=== PATIENT | female | born 1970 | race Caucasian/White ===

== ENCOUNTER → 2017-09-01 14:29 | Outpatient (CLI) | payer SELFPAY ==
--- NOTE | 2017-09-01 14:35 | BI_ITS ---
MAMMOGRAPHY - BILATERAL SCREENING REASON FOR EXAM: Female, 47 years old. Routine annual screening examination. PERTINENT HISTORY: Grandmother with breast cancer. Aunt with breast cancer. TECHNIQUE: Digital bilateral breast rob (3D mammographic acquisition) in the CC and MLO projections. 2-D mediolateral oblique (MLO) and craniocaudad (CC) views of both breasts were obtained. CAD: Full Field Digital Mammography with Computer Added Detection was performed. COMPARISON: Comparison is made with prior study dated March 30, 2016 and January 16, 2012. FINDINGS: Breast Composition: The breasts are heterogeneously dense, which may obscure small masses. There are no dominant masses or suspicious calcifications. Stable small bilateral benign-appearing axillary lymph nodes. No other significant abnormalities are identified. There has been no significant change since the prior study. BI/SCREENING MAMM (CAD), BILAT IMPRESSION: Stable bilateral screening mammogram. Yearly follow-up mammogram recommended. (A) ASSESSMENT CATEGORY: BIRADS Category 2: Benign. A letter regarding these results will be sent to the patient by the facility within 30 days. Approximately 10% of breast cancers are not detected by mammography. A normal mammogram should not delay biopsy of a clinically suspicious abnormality. [id number] Electronically Signed: Shubham Madrigal MD at 8:44 EDT Tel [phone], Service support ,
== END ==
PROVIDERS: Family Provider Nurse Practitioner Family; PCP Nurse Practitioner Family; Visit Provider Obstetrics & Gynecology
DX: Z12.31 Encounter for screening mammogram for malignant neoplasm of breast (principal)
CPT/HCPCS: 77063; 77067

== ENCOUNTER → 2018-03-14 16:34 | Outpatient (CLI) | payer SELFPAY ==
--- NOTE | 2018-03-14 16:40 | RAD_ITS ---
STUDY: X-RAY CHEST REASON FOR EXAM: Female, 48 years old. Cough times several weeks TECHNIQUE: PA and lateral views of the chest. COMPARISON: Prior study of 02/07/2017 FINDINGS: There is increased streaky pulmonic density of the right lung base. Right basilar peribronchial cuffing is noted. There is no demonstrated pleural abnormality. Normal size heart. Normal mediastinum and jh. Normal visualized pulmonary arteries. Normal visualized aortic arch and descending thoracic aorta. There is a minimal lower thoracic dextroscoliosis. Normal visualized ribs, clavicles, and shoulders. There is no demonstrated abnormality of the visualized soft tissue structures of the upper abdomen. RAD/Chest PA and Lateral IMPRESSION: There is increased streaky pulmonic density with peribronchial cuffing of the right lung base. Findings may represents pneumonitis. There is no evidence of alex consolidation. Minimal lower thoracic dextroscoliosis. Electronically Signed: Michael Lin MD at 23:31 EDT , Service support ,
== END ==
PROVIDERS: Family Provider Nurse Practitioner Family; PCP Nurse Practitioner Family; Referring Provider Nurse Practitioner Family; Visit Provider Nurse Practitioner Family
DX: J18.9 Pneumonia, unspecified organism (principal)
CPT/HCPCS: 71046

== ENCOUNTER → 2020-11-16 12:15 | Outpatient (CLI) | payer SELFPAY ==
--- NOTE | 2020-11-16 12:21 | BI_ITS ---
MAMMOGRAPHY - BILATERAL SCREENING REASON FOR EXAM: Female, 50 years old. Routine annual screening examination. PERTINENT HISTORY: Grandmother with breast cancer. Aunt with breast cancer. TECHNIQUE: Digital bilateral breast kenna (3D mammographic acquisition) in the CC and MLO projections. 2-D mediolateral oblique (MLO) and craniocaudad (CC) views of both breasts were obtained. CAD: Full Field Digital Mammography with Computer Added Detection was performed. COMPARISON: Comparison is made with prior examination dated 09/01/2017 and 03/30/2016. FINDINGS: Breast Composition: The breasts are heterogeneously dense, which may obscure small masses. There are no dominant masses or suspicious calcifications. Stable benign appearing bilateral axillary lymph nodes. No other significant abnormalities are identified. There has been no significant change since the prior study. BI/SCRN MAMM (CAD)W/KENNA BILAT IMPRESSION: Stable bilateral screening mammogram. Yearly follow-up mammogram recommended. (A) ASSESSMENT CATEGORY: BIRADS Category 2: Benign. A letter regarding these results will be sent to the patient by the facility within 30 days. Approximately 10% of breast cancers are not detected by mammography. A normal mammogram should not delay biopsy of a clinically suspicious abnormality. [id number] Electronically Signed: Shubham Madrigal MD at 13:20 EDT , Service support ,
== END ==
PROVIDERS: PCP Nurse Practitioner Family; Referring Provider Obstetrics & Gynecology; Visit Provider Obstetrics & Gynecology
DX: Z12.31 Encounter for screening mammogram for malignant neoplasm of breast (principal)
CPT/HCPCS: 77063; 77067

== ENCOUNTER 2022-08-17 15:32 | Emergency (ER) | payer OTHER, SELFPAY ==
[2022-08-17 15:32] VITALS: BP 152/82; PULSE 111; RESP 18; TEMP 36.2; O2SAT 97; BMI 37.8
--- NOTE | 2022-08-17 15:46 | EKG12_ITS ---
Test Reason : CP Blood Pressure : / mmHG Vent. Rate : 092 BPM Atrial Rate : 092 BPM P-R Int : 120 ms QRS Dur : 090 ms QT Int : 374 ms P-R-T Axes : 022 018 015 degrees QTc Int : 462 ms Normal sinus rhythm Normal ECG Confirmed by CHRISSY BUSH, DEN ([id number]), electronic news gathering editor KENNEDY DIXON ([id number]) on 08/22/2022 10:39:35 AM Referred By: NICHOL Confirmed By:JO LOWE MD
--- NOTE | 2022-08-17 15:47 | ED.VIS.CHEST ---
HPI History of Present Illness Chief Complaint: Chest Pain Detail of Chief Complaint: Neck and chest pain Informant: patient and spouse/S.O. Onset/Context/Timing Onset: Yesterday Activity at onset: sudden Timing: Continuous Quality: Positive for Stabbing Location: - (From the larynx to the xiphoid process and complains of bilateral jaw pain) Current Severity: Mild Maximum Severity: Moderate Worsened By: Exertion, Movement of Torso and Breathing Relieved By: Nothing Associated Symptoms: Positive for Dyspnea; Negative for Nausea, Vomiting, Diaphoresis, Cough, Fever, Lightheadedness, Acid Reflux or Palpitations Narrative Narrative: Patient is a 52-year-old woman who was sent in by her primary care doctor because of anterior neck pain that starts from the larynx to the xiphoid process describes a sharp discomfort. This started last evening. She has noted shortness of breath with going upstairs today. It does make the discomfort slightly worse. There is also a positional component and musculoskeletal component. Question of the pain being worse with breathing. She and her returned from [place] 3 weeks ago. They were in [place] for 3 weeks. She states they drove. She has no history of VTE. She denies leg pain, swelling or discoloration. She states she is adopted. She states her father had coronary disease. She believes he had his first event at the age of 67. She does have a remote history of reflux. She denies sour eructation. She denies burning sensation in her throat at night. She denies black or maroon stool. Denies change in color, consistency or caliber of her stool. She did make the comment that her voice is slightly different since this morning. She has not had difficulty swallowing liquids or solids. She denies pain in her upper or lower extremities. She denies paresthesia, anesthesia or motor weakness. Patient is postmenopausal. She is on no medication. Prior Similar Symptoms: No Recent Illness/Hospitalization: No CVD Risk Factors: Negative for Hypertension, Diabetes, Hypercholesterolemia, Family History 1' </=55 or Smoking PE Risk Factors: Positive for Recent Travel/Surgery; Negative for Recent Immobilization, Prior DVT or PE, Cancer or OCP + Smoking + >/=35 TAD Risk Factors: Negative for Marfan's Syndrome, Hypertension or Family History [facility] Medical History (Updated 08/17/22 @ 18:[address] Manoj Hood MD) Family history of GERD Medical History no medical history no medical history Home Medications estradiol 1 mg tablet 1 mg PO DAILY 08/24/16 [History Last Taken 10/21/16] Allergy/AdvReac Type Severity Reaction Status Date / Time latex Allergy Itching Verified 08/17/22 15:34 CORNSTARCH Allergy Itching Uncoded 08/17/22 15:34 Surgical History (Updated 08/17/22 @ 16:46 by Suzan Concepcion) History of appendectomy History of cholecystectomy History of hysterectomy Social History (Updated 08/17/22 @ 15:[address] Manoj Hood MD) household members: spouse Smoking Status: Former smoker substance use type: does not use ROS ROS ED Constitutional Constitutional ED: Reports as per HPI; Denies anorexia Eyes Eyes: Reports none ENT ENT ED: Reports as per HPI Cardiovascular Cardiovascular: Reports chest pain and chest pain at rest; Denies abdominal bloating, bluish discoloration of hand/feet, claudication, clubbing, cyanosis, diaphoresis or vomiting Gastrointestinal Gastrointestinal: Denies abdominal pain, belching, bloating, change in bowel habits, change in stool character or constipation Genitourinary Genitourinary ED: Reports none Musculoskeletal Musculoskeletal: Reports as per HPI Integumentary Reports none Neurologic Neurologic: Reports systems reviewed and no addt'l complaints, except as documented Psychiatric Psychiatric: Reports none Endocrine Endocrinology: Reports none Hematologic/Lymphatic Hematologic/Lymphatic: Denies anemia, easy bleeding or easy bruising EXAM Physical Exam Const Vital Signs: 08/17/22 15:32 08/17/22 16:35 08/17/22 17:11 Temperature 97.2 F L Temperature Source Temporal Pulse Rate 111 H 102 H Respiratory Rate 18 19 H Respiratory Effort Normal Respiratory Pattern Normal Blood Pressure 152/82 H 129/76 H Blood Pressure Mean 105 93 Pulse Ox 97 98 Oxygen Delivery Method Room Air Room Air Positive well nourished, well developed, obese, alert, oriented x3, no apparent distress and no limitations General Appearance ED: active, cooperative, well developed and NAD Nutritional Appearance: obese HEENT Reports normocephalic, external ears normal, nasal mucous membranes and turbinates normal, moist oral mucous membranes and oropharynx normal; Denies rhinorrhea normocephalic and atraumatic Face and Sinus: normal facial exam Nose: external nose normal and nares normal Mouth ED: Yes oral and palatal mucosa normal, Yes lips normal and Yes tongue normal Mouth: oral and palatal mucosa normal, lips normal and tongue normal Eyes PERRL, EOMs intact bilaterally, conjunctivae normal and no scleral icterus General Eye ED: Yes normal appearance of both eyes Alignment: alignment normal Eyelid: eyelids normal Conjunctiva: conjunctiva normal Sclera: sclera normal Pupil: PERRL Neck full ROM, No nuchal rigidity, no lymphadenopathy, supple, no meningeal signs, no JVD, nodes and no carotid bruits Neck Narrative: Trachea midline. No inspiratory expiratory stridor. General: trachea midline Lymph Lymphatic: no lymphadenopathy noted and no lymphedema noted Resp normal respiratory effort and normal air movement Cardio regular rhythm, S1 normal heart sound, S2 normal heart sound and no murmurs; Negative for regular rate Rate: tachycardic GI normal to inspection, nondistended, normoactive bowel sounds, soft to palpation, non-tender, non-distended, no masses and no bruits; Negative for hepatosplenomegaly GI Narrative: Status postcholecystectomy and appendectomy scars noted. no CVA tenderness Back/Spine no CVA tenderness, normal ROM and normal to inspection Extremity normal to inspection, full ROM, no joint enlargement, no clubbing, cyanosis or edema, no calf tenderness and no pedal edema Neuro oriented x3, CN's II-XII intact bilaterally and moves all extremities Sensorium / Orientation: awake and alert Psych mental status grossly normal and thought process normal Skin no rashes or lesions noted, no wounds, skin turgor normal, no jaundice, no petechiae and no mottling Skin Narrative: Patient does have a [place]. She was recently in [place]. General Skin Exam: no breakdown, elasticity normal and turgor normal MDM MDM MDM Narrative Medical decision making narrative: Differential diagnosis would include GI etiology i.e. reflux, esophagitis, cardiac etiology, pulmonary etiology will obtain EKG. Troponin for cardiac ischemia since pain has been present for approximately 20+ hours. Since she is not PERC negative D-dimer was obtained since there is a pleuritic component. This may also represent musculoskeletal since there is a musculoskeletal component. Chest x-ray was obtained to assess for any obvious pulmonary findings even though her auscultatory findings were normal. BMP to assess renal function and in the event a CTA is required. Since chest x-ray, EKG and blood work are all normal will treat with GI cocktail and reassess Nurse informed me at 1754 that patient had no improvement. Patient was informed the cause of her pain is unknown. She was referred back to her primary care physician for outpatient work-up. She may need referral to GI to evaluate for GERD. Recommended keeping a diary of what she eats throughout the day and if anything changes the intensity or location of the pain. History & Record Review Additional record(s) reviewed:: Prior ED visit (Seen for right upper quadrant pain due to cholecystitis, hypercholesterolemia and chest pain in 2017.) Lab Data Attestation: I reviewed the patient's lab results. Lab results narrative: CBC is remarkable for an elevated hemoglobin hematocrit. D-dimer is normal. Troponin is less than 3, which rules out cardiac etiology, basic metabolic panel is normal. Labs: Laboratory Results - last 24 hr 08/17/22 08/17/22 08/17/22 16:02 16:02 16:02 WBC 8.1 RBC 5.89 H Hgb 16.3 H Hct 49.8 H MCV 84.6 MCH 27.7 MCHC 32.7 RDW Std Deviation 38.6 RDW Coeff of Yoly 12.6 Plt Count 247 MPV 8.4 Immature Gran % (Auto) 0.600 Neut % (Auto) 57.4 Lymph % (Auto) 29.9 Graham % (Auto) 9.1 Eos % (Auto) 2.5 Baso % (Auto) 0.5 Absolute Neuts (auto) 4.7 Absolute Lymphs (auto) 2.43 Nucleated RBC % 0 D-Dimer Quant (PE/DVT) 0.36 Sodium 139 Potassium 4.1 Chloride 105 Carbon Dioxide 30.0 Anion Gap 4 L BUN 16 Creatinine 0.79 Estim Creat Clear Calc 58.47 Est GFR (MDRD) Af Amer 98 Est GFR (MDRD) Non-Af 81 BUN/Creatinine Ratio 20.3 H Glucose 94 Calcium 9.5 Troponin I High Sens < 3 L Radiography Chest X-Ray - ED: 2 View and Read by Radiologist (Cardiac size and silhouette are normal. Perihilar region normal. Lung parenchyma normal. Osseous structures normal. This was independently reviewed and interpreted by me) Diagnostic Testing: Clinical Impression(s) from Imaging Studies Chest X-Ray 08/17/22 16:05 IMPRESSION: No radiographic evidence of acute cardiopulmonary disease. Electronically Signed: Juan Daniel Bethea MD at 16:38 EDT , Differential Diagnosis Chest pain/SOB: aortic dissection Reason(s) Aortic dissection less likely:: Positive for normal vascular exam, no history of HTN, normal neurological exam, no significant risk factors for dissection, no widened mediastinum on CXR, pain not sudden onset, no ripping/tearing pain, no pain to back and blood pressure appropriate in ED Discharge Plan Triage Chief Complaint: Chest Pain ED Provider: Manoj Hood Dx/Rx/DC Orders Clinical Impression: Chest pain, non-cardiac, NOEL (dyspnea on exertion) Instructions: ED Chest Pain, Noncardiac Prescriptions: No Action estradiol 1 MG tablet 1 mg PO DAILY Label Comments: Primary Care Provider: Nancy Escobar NP Referrals: Nancy Escobar NP, [employer] [Primary Care Provider] - 3-5 Days Disposition Disposition: Home, Self Care
--- NOTE | 2022-08-17 16:05 | RAD_ITS ---
EXAM: XR CHEST, 2 VIEWS CLINICAL INDICATION: cp jung TECHNIQUE: Frontal and lateral views of the chest. This report was created using [employer] report generation technology. COMPARISON: 03.14.18 FINDINGS: LUNGS AND PLEURAL SPACES: Unremarkable. No consolidation or edema. No pneumothorax. No effusion. HEART: Unremarkable. Cardiac silhouette not enlarged. MEDIASTINUM: Central airways and mediastinal contour are unremarkable. BONES/JOINTS: Unremarkable. SOFT TISSUES: Unremarkable. RAD/Chest PA and Lateral IMPRESSION: No radiographic evidence of acute cardiopulmonary disease. Electronically Signed: Juan Daniel Bethea MD at 16:38 EDT ,
[2022-08-17 16:10] LABS: Absolute Lymphocyte Count 2.43 X10^3/uL (0.83-4.51); Absolute Neutrophil Count 4.7 X10^3/uL (2.0-7.7); Basophil# 0.04 X10^3/uL; Basophil% 0.5 % (0-1); Eosinophils% 2.5 % (0-5); Hematocrit 49.8 % (37-47); Hemoglobin 16.3 g/dL (12.0-15.0); Lymphocyte # 2.43 X10^3/ul (0.83-4.51); Lymphocyte % 29.9 % (19-41); Mean Corp Hgb Conc 32.7 g/dL (32-36); Mean Corpuscular Hgb 27.7 pg (27.0-32.0); Mean Corpuscular Volume 84.6 fL (81-99); Mean Platelet Vol. 8.4 fl (6.2-12.0); Monocyte# 0.74 X10^3/uL; Monocyte% 9.1 % (0-10); NRBC Flagged by Analyzer 0 % (0-5); Neutrophil # 4.68 X10^3/uL (2.7-7.7); Neutrophil % 57.4 % (47-70); Platelet Count 247 K/mm3 (150-450); RBC Distribution Width CV 12.6 % (11.6-14.6); RBC Distribution Width SD 38.6 fl (35.1-43.9); Red Blood Count 5.89 M/mm3 (4.2-5.4); White Blood Count 8.1 K/mm3 (4.4-11.0)
[2022-08-17 16:20] LABS: D-Dimer Quantitative (DVT/PE) 0.36 FEU/ug/m (0.27-0.49)
[2022-08-17 16:27] LABS: Anion Gap 4 (5-15); BUN 16 mg/dL (7-18); BUN/Creat Ratio 20.3 RATIO (10-20); Calcium,Total 9.5 mg/dL (8.5-10.1); Chloride 105 mmol/L (98-107); Creatinine, Serum 0.79 mg/dL (0.55-1.02); EST Glomerular Filtration Rate 81 mL/min (>60); Est Glom Filt Rate - Afr Amer 98 mL/min (>60); Estimated Creatinine Clearance 58.47 ml/min; Glucose 94 mg/dL (74-106); Potassium 4.1 mmol/L (3.5-5.1); Sodium Level 139 mmol/L (136-145); Troponin-I HS < 3 pg/mL (3.0-54.0)
[2022-08-17] MEDS: Mag Hydrox/Al Hydrox/Simeth 30 ML UDC PO (17:10)
[2022-08-17 17:11] VITALS: BP 129/76; PULSE 102; RESP 19; O2SAT 98
[2022-08-17 18:09] VITALS: BP 128/75; PULSE 104; RESP 16; O2SAT 98
== END 2022-08-17 18:17 | disposition home or self-care (01) ==
PROVIDERS: Emergency Provider Emergency Medicine; PCP Nurse Practitioner Family; Visit Provider Emergency Medicine
DX: R07.9 Chest pain, unspecified (principal); R06.09 Other forms of dyspnea; E66.9 Obesity, unspecified; Z87.891 Personal history of nicotine dependence
CPT/HCPCS: 71046; 80048; 84484; 85025; 85379; 93005; 99285; A4216

== ENCOUNTER → 2022-08-24 | Outpatient (CLI) | payer OTHER, SELFPAY ==
[2022-08-24 16:07] LABS: Magnesium 2.3 mg/dL (1.6-2.6)
[2022-08-26 15:27] LABS: H. Pylori Antibody (IgG) 0.12 (0.00-0.79)
== END | disposition home or self-care (01) ==
LOC: LAB 14:55
PROVIDERS: PCP Nurse Practitioner Family; Referring Provider Nurse Practitioner Family; Visit Provider Nurse Practitioner Family
DX: K21.9 Gastro-esophageal reflux disease without esophagitis (principal); K22.4 Dyskinesia of esophagus
CPT/HCPCS: 36415; 83735; 86677

== ENCOUNTER 2022-10-25 13:43 | Day surgery (SDC) | payer OTHER, SELFPAY ==
[2022-10-25 14:06] VITALS: BP 123/86; PULSE 89; RESP 16; TEMP 37; O2SAT 98; BMI 36.6
[2022-10-25] MEDS: Lactated Ringers 1,000 ML 15 ML IV (14:26)
--- NOTE | 2022-10-25 14:45 | EGD_PTH ---
PATIENT: MAYELA CURTIS LOC: [facility] U#:[id number] AGE/SX: 52/F ROOM: RE10/25/[address]: Dr. Russell Willams DO : 1970 BED: DIS: 10/25/2022 SPEC #: [id number] RECD: 10/25/22 15:53 STATUS: YA REViky #: [id number] DEWEY: 10/25/22 14:[address]: Russell Willams DEPT: SURGICAL PATHOLOGY RECD BY: Juliet Paul ENTERED: 10/26/22 08:40 SP TYPE: EGD BIOPSY OT DR: Nancy Escobar, MEDICAL IMAGING DIRECTOR-C Tissues: A - Duodenum, NOS B - Gastric mucous membrane C - Esophagus, NOS Procedures: Special Stain Group II Surgery Specimen Level IV Alcian Blue/PAS (control) HEADER OPERATION: EGD ([facility]) PRE-OP DIAGNOSIS: Atypical chest pain TISSUE SUBMITTED: A ? Duodenum biopsy, B ? Gastric antrum for H. pylori and path, C ? Distal esophagus biopsy MICROSCOPIC DIAGNOSIS A. Duodenum, biopsy: Fragments of small bowel mucosa with no pathologic change. Fragment of gastric mucosa with mild chronic inflammation. B. Gastric antrum, biopsy: Chronic gastritis. See comment. C. Distal esophagus, biopsy: Gastroesophageal junctional mucosa with mild chronic inflammation. No evidence of goblet cell metaplasia. Focal changes of reflux. See comment. AM:ann 10/27/2022 COMMENT B. The results of immunohistochemistry for Helicobacter pylori will be reported separately ([id number]). C. Alcian blue/PAS stain with matched control supports the above diagnosis. MICROSCOPIC DESCRIPTION Slides are reviewed. GROSS DESCRIPTION A - Received in fixative is one container labeled with the patient's name and designated duodenum biopsy. The specimen consists of multiple irregular fragments of light mcdowell soft tissue that in aggregate measure 1.0 x 0.3 x 0.1 cm. The specimen is totally submitted in one cassette. B - Received in fixative is one container labeled with the patient's name and designated gastric antrum. The specimen consists of multiple irregular fragments of light mcdowell soft tissue that in aggregate measure 1.0 x 0.3 x 0.1 cm. The specimen is totally submitted in one cassette. C - Received in fixative is one container labeled with the patient's name and designated distal esophagus biopsy. The specimen consists of two irregular fragments of light mcdowell soft tissue that in aggregate measure 0.6 x 0.3 x 0.1 cm. The specimen is totally submitted in one cassette. / SJ:rg 10/26/2022 TC:3 CPT: 70070 x3, 43939
--- NOTE | 2022-10-25 14:45 | IMM_PTH ---
PATIENT: MAYELA CURTIS LOC: EN U#:[id number] AGE/SX: 52/F ROOM: RE10/25/[address]: Dr. Russell Willams DO : 1970 BED: DIS: 10/25/2022 SPEC #: [id number] RECD: 10/26/22 09:00 STATUS: YA REViky #: [id number] DEWEY: 10/25/22 14:[address]: Russell Willams DEPT: IMMUNOHISTOCHEMISTRY RECD BY: Aysha Cid ENTERED: 10/26/22 09:01 SP TYPE: IMMUNO OTHR DR: Nancy Escobar, TROUBLE DISPATCHER-C Tissues: B - Stomach, NOS Procedures: H Pylori (initial) PHYSICIAN & INSTITUTION [place] [id number] SPECIMEN INFORMATION: Tissue Source: B ? Gastric antrum Clinical Info: Atypical chest pain Specimen Number: [id number] CPT code: 10646 METHODOLOGY: Deparaffinized sections of prefer/formalin-fixed tissue or PAP/DQ stained slides are incubated with monoclonal/polyclonal antibodies/oligonucleotide probes. Localization is made via biotin free immunoperoxidase method. Appropriate controls are performed and reacted as expected. Results on target cell population are indicated in the following table: RESULTS: ANTIBODY / CLONE RESULT Block B H Pylori (polyclonal) negative These tests were developed and their performance characteristics determined by [facility]. They may not have been cleared or approved by the U.S. Food and Drug Administration. The FDA has determined that such clearance or approval is not necessary. The above immunohistochemical/dualISH markers are ordered and reviewed by the Pathologist. INTERPRETATION: B. Gastric antrum, biopsy: Negative for Helicobacter pylori organisms. AM:ann 10/27/2022
--- NOTE | 2022-10-25 14:57 | PCM.HP.BLA ---
History and Physical Date of Admission: 10/25/22 52 F who presents to the office today for atypical chest pain, goes from ears/jaw to anterior chest to lower sternum. Stabbing, pulsing pain. Doesn't radiate to back. First occurred when in [place] in 06/2022, occurred after drinking water, lasted maybe a few hours, resolved spontaneously. Occurred again in 07/2022, was more severe that time. Went to ED next day, [facility] ED on 08/17/22--normal CXR, labs, EKG. No relief with GI cocktail. No relief with 30 days of omeprazole. No relief with dicyclomine. Better with BID dosing of famotidine. No nausea, vomiting. She has had difficulty swallowing a capsule a couple of times. No regurgitation, no acid reflux, no heartburn. She has a hx of heartburn but not bothersome since changing her diet 5 yrs ago. No abd pain. No diarrhea, constipation, melena, hematochezia. 01/[address]oscopy [address] Nolen at [facility]--bxs of duodenum, stomach, esophagus, TI, colon negative. ROS Const Constitutional: Positive for fatigue and weight change ENT ENT: No difficulty swallowing Gastro GI: Positive for heartburn; No abdominal pain, belching, bloating, change in bowel habits, change in stool character, coffee ground emesis, constipation, cramping, diarrhea, difficulty swallowing, feeling full early, excessive flatus, incontinent of stools, Vomiting blood/hematemesis, Blood in stool, loose stools, Black,tarry stools, nausea/dyspepsia, pain with swallowing, vomiting or other Musc Musculoskeletal: Positive for joint pain, back pain, joint swelling, muscle cramps, muscle weakness, stiffness and Arthritis Skin Skin: No yellowing of the eye or itchy eyes Psych Psychiatric: No anxiety and No depression Endo Endocrine: Positive for fatigue and weight change Aller/Imm Allergy/Immunologic: No itchy eyes Dmitry/Lymp Hematologic/Lymphatic: Positive for easy bruising; No easy bleeding Exam Const General: cooperative and comfortable Nutritional Appearance: obese Orientation: alert, awake and oriented x3 HENMT Head: normal to inspection Neck Neck: normal visual inspection Chest Chest palpation & inspection: normal inspection of the chest Resp Effort & Inspection: normal respiratory effort GI Inspection: normal to inspection Skin General: no rashes or lesions noted Neuro Speech: speech normal Gait: normal gait Psych Mood: congruent mood Quality Reporting Tobacco Screening ([facility] 138) Smoking Status: Former smoker Assessment and Plan Assessment and Plan (1) Atypical chest pain: ?Status:?Chronic ?Plan: 52 yr old female with atypical chest pain, consider esophageal spasms/dysmotility Esophagram EGD, office f/u 2 wks later Consider manometry Continue famotidine BID since that helps I have examined the patient and the H&P has been reviewed. There are no clinical changes since date of exam.
[2022-10-25 15:18] VITALS: BP 107/66; BP 123/86; PULSE 89; RESP 14; TEMP 36.2; O2SAT 97
[2022-10-25 15:20] VITALS: BP 117/57; BP 123/86; PULSE 86; RESP 16; O2SAT 97
[2022-10-25 15:25] VITALS: BP 103/65; BP 123/86; PULSE 81; RESP 16; O2SAT 96
--- NOTE | 2022-10-25 15:29 | OP.CCLET_ITS ---
10/25/2022 Nancy Escobar Re : Upper GI endoscopy procedure for Neeta Stephensr Shawn This procedure was performed on Tuesday, October 25, 2022. My impressions and recommendations are as follows: Impressions : - Non-severe non-erosive esophagitis. Biopsied. - Bile gastritis. Biopsied. - Erythematous duodenopathy. Biopsied. Recommendations : - Discharge patient to home. - Resume previous diet. - Continue present medications. - Await pathology results. - Evaluation of polycythemia as a cause of chest pain - Documentation was given on bile gastritis My findings are described in the full procedure note, which is enclosed. If I can be of further assistance, please feel free to contact me at . Sincerely, Russell Willams, 10/25/2022 3:28:38 PM This report has been signed electronically.
--- NOTE | 2022-10-25 15:29 | OP.EGD_ITS ---
Patient Name: Neeta Deleon Procedure Date: 10/25/2022 2:56 PM Date of : 1970 Age: 52 Procedure: Upper GI endoscopy Indications: Dysphagia, Heartburn, Failure to respond to medical treatment Providers: Russell Wlilams DO Medicines: Monitored Anesthesia Care Patient Profile: This is a 52 year old female. Refer to note in patient chart for documentation of history and physical. Patient has symptoms. Patient has symptoms of chronic chest pain and chronic dysphagia. Complications: No immediate complications. Procedure: Pre-Anesthesia Assessment: - Prior to the procedure, a History and Physical was performed, and patient medications and allergies were reviewed. The risks and benefits of the procedure and the sedation options and risks were discussed with the patient. All questions were answered and informed consent was obtained. Patient identification and proposed procedure were verified by the physician. Mental Status Examination: normal. Prophylactic Antibiotics: The patient does not require prophylactic antibiotics. Prior Anticoagulants: The patient has taken no previous anticoagulant or antiplatelet agents. ASA Grade Assessment: II - A patient with mild systemic disease. After reviewing the risks and benefits, the patient was deemed in satisfactory condition to undergo the procedure. The anesthesia plan was to use monitored anesthesia care (MAC). Immediately prior to administration of medications, the patient was re-assessed for adequacy to receive sedatives. The heart rate, respiratory rate, oxygen saturations, blood pressure, adequacy of pulmonary ventilation, and response to care were monitored throughout the procedure. The physical status of the patient was re-assessed after the procedure. After obtaining informed consent, the endoscope was passed under direct vision. Throughout the procedure, the patient's blood pressure, pulse, and oxygen saturations were monitored continuously. The gastroscope was introduced through the mouth, and advanced to the second part of duodenum. The upper GI endoscopy was accomplished without difficulty. The patient tolerated the procedure well. Scope In: 3:05:22 PM Scope Out: 3:12:05 PM Total Procedure Duration Time 0 hours 6 minutes 43 seconds Findings: Non-severe esophagitis with no bleeding was found 36 to 38 cm from the incisors. Biopsies were taken with a cold forceps for histology. Verification of patient identification for the specimen was done. Estimated blood loss was minimal. Patchy mild inflammation characterized by erythema was found in the gastric body, at the incisura and in the gastric antrum. Biopsies were taken with a cold forceps for histology. Patchy mildly erythematous mucosa without active bleeding and with no stigmata of bleeding was found in the duodenal bulb and in the first portion of the duodenum. Biopsies were taken with a cold forceps for histology. Verification of patient identification for the specimen was done. Estimated blood loss was minimal. Impression: - Non-severe non-erosive esophagitis. Biopsied. - Bile gastritis. Biopsied. - Erythematous duodenopathy. Biopsied. Recommendation: - Discharge patient to home. - Resume previous diet. - Continue present medications. - Await pathology results. - Evaluation of polycythemia as a cause of chest pain - Documentation was given on bile gastritis Procedure Code(s): --- Professional --- 21136, Esophagogastroduodenoscopy, flexible, transoral; with biopsy, single or multiple CPT copyright 2017 [employer]. All rights reserved. The codes documented in this report are preliminary and upon machine heel seat fitter review may be revised to meet current compliance requirements. Russell Willams DO 10/25/2022 3:28:38 PM This report has been signed electronically. Number of Addenda: 0 Note Initiated On: 10/25/2022 2:56 PM
[2022-10-25 15:30] VITALS: BP 100/73; BP 123/86; PULSE 77; RESP 16; O2SAT 97
[2022-10-25 15:35] VITALS: BP 116/72; BP 123/86; PULSE 77; RESP 16; TEMP 36.2; O2SAT 98
== END 2022-10-25 16:06 | disposition home or self-care (01) ==
LOC: EN 13:47 → AC 13:49
PROVIDERS: PCP Nurse Practitioner Family; Referring Provider Nurse Practitioner Family; Visit Provider Internal Medicine Gastroenterology
PROC: 0DJ08ZZ Inspection of Upper Intestinal Tract, Via Natural or Artificial Opening Endoscopic (ICD-10-PCS; CPT 43235; principal; 2022-10-25 14:40)
DX: Z87.891 Personal history of nicotine dependence (principal); E66.9 Obesity, unspecified; K21.00 Gastro-esophageal reflux disease with esophagitis, without bleeding; K29.50 Unspecified chronic gastritis without bleeding; J45.909 Unspecified asthma, uncomplicated; Z79.899 Other long term (current) drug therapy
CPT/HCPCS: 43239; 88305; 88313; 88342; J7120; J2405

== ENCOUNTER → 2022-11-08 | Outpatient (CLI) | payer OTHER, SELFPAY ==
[2022-11-08 08:19] LABS: Hematocrit 47.7 % (37-47); Hemoglobin 15.5 g/dL (12.0-15.0); Mean Corp Hgb Conc 32.5 g/dL (32-36); Mean Corpuscular Hgb 27.2 pg (27.0-32.0); Mean Corpuscular Volume 83.8 fL (81-99); Mean Platelet Vol. 8.9 fl (6.2-12.0); Platelet Count 243 K/mm3 (150-450); RBC Distribution Width SD 39.5 fl (35.1-43.9); Red Blood Count 5.69 M/mm3 (4.2-5.4); White Blood Count 8.2 K/mm3 (4.4-11.0)
[2022-11-08 08:47] LABS: ALB/GLOB Ratio 1.1 RATIO (0.9-2.4); AST(SGOT) 36 U/L (15-37); Alanine Aminotransfer ALT/SGPT 112 U/L (13-56); Albumin, Serum 3.8 g/dL (3.2-5.0); Alkaline Phosphatase 60 U/L (45-117); Anion Gap 5 (5-15); BUN 19 mg/dL (7-18); BUN/Creat Ratio 21.4 RATIO (10-20); Calcium,Total 9.4 mg/dL (8.5-10.1); Chloride 107 mmol/L (98-107); Cholesterol 251 mg/dL (200); Creatinine, Serum 0.89 mg/dL (0.55-1.02); EST Glomerular Filtration Rate 70 mL/min (>60); Est Glom Filt Rate - Afr Amer 85 mL/min (>60); Globulin 3.4 g/dL (2.2-4.2); Glucose 112 mg/dL (74-106); High Density Lipoprotein 56 mg/dL; Potassium 4.1 mmol/L (3.5-5.1); Protein, Total 7.2 g/dL (6.4-8.2); Sodium Level 139 mmol/L (136-145); Triglycerides 137 mg/dL; Very Low Density Lipoprotein 27 mg/dL (5-40)
== END | disposition home or self-care (01) ==
LOC: LAB 07:13
PROVIDERS: PCP Nurse Practitioner Family; Referring Provider Nurse Practitioner Family; Visit Provider Nurse Practitioner Family
DX: Z00.00 Encounter for general adult medical examination without abnormal findings (principal); K21.9 Gastro-esophageal reflux disease without esophagitis; E78.00 Pure hypercholesterolemia, unspecified; R74.8 Abnormal levels of other serum enzymes
CPT/HCPCS: 36415; 80053; 80061; 85027

== ENCOUNTER → 2022-12-30 | Outpatient (CLI) | payer OTHER, SELFPAY ==
--- NOTE | 2022-12-30 14:31 | BI_ITS ---
MAMMOGRAPHY - BILATERAL SCREENING REASON FOR EXAM: Female, 52 years old. Routine annual screening examination. PERTINENT HISTORY: Grandmother with breast cancer. Aunts with breast cancer. TECHNIQUE: Digital bilateral breast kenna (3D mammographic acquisition) in the CC and MLO projections. 2-D mediolateral oblique (MLO) and craniocaudad (CC) views of both breasts were obtained. CAD: Full Field Digital Mammography with Computer Added Detection was performed. COMPARISON: Comparison is made with prior study dated November 16, 2020 and September 01, 2017. FINDINGS: Breast Composition: The breasts are heterogeneously dense, which may obscure small masses. There are no dominant masses or suspicious calcifications. Stable benign-appearing bilateral axillary lymph nodes. No other significant abnormalities are identified. There has been no significant change since the prior study. BI/SCRN MAMM (CAD)W/KENNA BILAT IMPRESSION: Stable bilateral screening mammogram. Yearly follow-up mammogram recommended. (A) ASSESSMENT CATEGORY: BIRADS Category 2: Benign. A letter regarding these results will be sent to the patient by the facility within 30 days. Approximately 10% of breast cancers are not detected by mammography. A normal mammogram should not delay biopsy of a clinically suspicious abnormality. [id number] Electronically Signed: Shubham Madrigal MD at 15:24 EDT ,
== END | disposition home or self-care (01) ==
LOC: OPBI 14:28
PROVIDERS: PCP Nurse Practitioner Family; Referring Provider Nurse Practitioner Family; Visit Provider Nurse Practitioner Family
DX: Z12.31 Encounter for screening mammogram for malignant neoplasm of breast (principal)
CPT/HCPCS: 77063; 77067

== ENCOUNTER → 2023-01-04 | Outpatient (CLI) | payer OTHER, SELFPAY | END | disposition home or self-care (01) | LOC: SL 20:01 | PROVIDERS: PCP Nurse Practitioner Family; Referring Provider Nurse Practitioner Acute Care; Visit Provider Nurse Practitioner Acute Care | DX: G47.10 Hypersomnia, unspecified (principal) | CPT/HCPCS: 95810 ==

== ENCOUNTER → 2023-01-25 | Outpatient (CLI) | payer OTHER, SELFPAY ==
[2023-01-25 17:01] LABS: Hematocrit 49.8 % (37-47); Mean Corp Hgb Conc 32.1 g/dL (32-36); Mean Corpuscular Hgb 26.9 pg (27.0-32.0); Mean Corpuscular Volume 83.7 fL (81-99); Mean Platelet Vol. 8.6 fl (6.2-12.0); Platelet Count 257 K/mm3 (150-450); RBC Distribution Width CV 12.9 % (11.6-14.6); RBC Distribution Width SD 39.1 fl (35.1-43.9); Red Blood Count 5.95 M/mm3 (4.2-5.4); White Blood Count 7.1 K/mm3 (4.4-11.0)
[2023-01-25 17:30] LABS: Vitamin B12 506 pg/mL (211-911)
[2023-01-25 17:31] LABS: Ferritin 271 ng/mL (8-252); Iron 55 ug/dL (50-170); Iron Binding Capacity,Total 326 ug/dL (250-450); PERCENT IRON SATURATION 16.9 % (15.0-55.0)
== END | disposition home or self-care (01) ==
LOC: LAB 16:24
PROVIDERS: PCP Nurse Practitioner Family; Referring Provider Nurse Practitioner Acute Care; Visit Provider Nurse Practitioner Acute Care
DX: G25.81 Restless legs syndrome (principal)
CPT/HCPCS: 36415; 82607; 82728; 83540; 83550; 85027

== ENCOUNTER → 2023-03-22 | Outpatient (CLI) | payer OTHER, SELFPAY ==
--- NOTE | 2023-03-22 18:00 | RAD_ITS ---
STUDY: X-RAY - PELVIS AND RIGHT HIP REASON FOR EXAM: Female, 53 years old. DEFORMITY TECHNIQUE: 3 views of the pelvis and right hip. COMPARISON: None. FINDINGS: There is a non-specific bowel gas pattern. Normal visualized soft tissue structures. There are multiple calcified phleboliths. There is narrowing with cortical sclerosis and osteophyte formation of the sacroiliac joint consistent with mild degenerative osteoarthritic changes. Normal bilateral superior and inferior pubic rami. There are degenerative changes of the pubic symphysis with articular narrowing and sclerosis. Normal bilateral ischial tuberosities. There are mild osteoarthritic changes of the femoral head with marginal osteophyte formation. Small cyst in the upper acetabular region seen with mild increased sclerosis. There is moderate articular joint space narrowing of the hip. RAD/HIP, UNI W/ Pelvis 2-3 Views IMPRESSION: Multilevel degenerative disease, including the right hip otherwise no acute fracture or subluxation. Electronically Signed: Vicenta Jordan MD at 2:19 EDT ,
== END | disposition home or self-care (01) ==
PROVIDERS: PCP Nurse Practitioner Family; Visit Provider Nurse Practitioner Family
DX: Q65.9 Congenital deformity of hip, unspecified (principal)
CPT/HCPCS: 73502

== ENCOUNTER 2023-04-03 05:27 | Day surgery (SDC) | payer OTHER, SELFPAY ==
[2023-04-03 05:45] VITALS: BP 127/78; PULSE 93; RESP 18; TEMP 36.7; O2SAT 97; BMI 35.6
[2023-04-03] MEDS: Lactated Ringers 1,000 ML 15 ML IV (05:53)
--- NOTE | 2023-04-03 06:21 | PCM.HP.BLA ---
History and Physical Date of Admission: 04/03/23 52 F who presents to the office today for [facility] ED 08.17.22 with atypical chest/neck pain with some positional component. Cardiac workup without concern. GI Cocktail ineffective. *[facility] established 09.16.22 for atypical chest pain extending for ears/jaw to lower sternum with a stabbing/pulsing pain with initial onset and has occurred intermittently with short durations since. Omeprazole, dicyclomine ineffective; some relief with famotidine BID. ? EGD 10.25.22 non-severe esophagitis; gastritis; duodenitis. No path changes/metaplasia. OV 01.09.23 She was taking Lipitor but PCP stopped because of bruising; with use of Lipitor she was having severe constipation. BM have improved with this stop, current pattern days without BM, straining, hard small stools, bloating/abdominal discomfort; does not feel dietary fiber made changes. Reports resolution of chest discomfort and upper GI symptoms. ROS Const Constitutional: Positive for fatigue and weight change ENT ENT: No difficulty swallowing Gastro GI: Positive for heartburn; No abdominal pain, belching, bloating, change in bowel habits, change in stool character, coffee ground emesis, constipation, cramping, diarrhea, difficulty swallowing, feeling full early, excessive flatus, incontinent of stools, Vomiting blood/hematemesis, Blood in stool, loose stools, Black,tarry stools, nausea/dyspepsia, pain with swallowing, vomiting or other Musc Musculoskeletal: Positive for joint pain, back pain, joint swelling, muscle cramps, muscle weakness, stiffness and Arthritis Skin Skin: No yellowing of the eye or itchy eyes Psych Psychiatric: No anxiety and No depression Endo Endocrine: Positive for fatigue and weight change Aller/Imm Allergy/Immunologic: No itchy eyes Dmitry/Lymp Hematologic/Lymphatic: Positive for easy bruising; No easy bleeding Exam Const General: cooperative and comfortable Nutritional Appearance: obese Orientation: alert, awake and oriented x3 HENMT Head: normal to inspection Neck Neck: normal visual inspection Chest Chest palpation & inspection: normal inspection of the chest Resp Effort & Inspection: normal respiratory effort GI Inspection: normal to inspection Skin General: no rashes or lesions noted Neuro Speech: speech normal Gait: normal gait Psych Mood: congruent mood Quality Reporting Tobacco Screening ([facility]) Smoking Status: Former smoker Assessment and Plan Assessment and Plan (1) Chronic constipation: Status: Chronic Plan: I think her constipation is mostly secondary to medication side effect from the statin that she was placed on. I told her it is okay for her to take fiber on a daily basis plus Metamucil on a daily basis in order to maintain 1-2 normal bowel movements a day. As per patient she has had a colonoscopy in the past although not take its any structural issues in her colon as it does correlate with her new medication regimen. (2) Atypical chest pain: Status: Chronic Plan: I think her atypical chest pain was secondary to bile reflux esophagitis. She did have a lot of bile in her stomach that was removed. It was about 250 mL. Typically we made about 300 pounds about a day and she had almost that amount in her stomach prior to her upper endoscopy. She is getting full fast. She may need to undergo gastric emptying study 1 hour and 4-hour to make sure symptoms correlate with her findings. I have examined the patient and the H&P has been reviewed. There are no clinical changes since date of exam.
[2023-04-03 06:59] VITALS: BP 105/71; BP 127/78; PULSE 75; RESP 16; TEMP 36.4; O2SAT 97
--- NOTE | 2023-04-03 07:02 | OP.COLON_ITS ---
Patient Name: Neeta Deleon Procedure Date: 04/03/2023 6:19 AM Date of : 1970 Age: 53 Procedure: Colonoscopy Indications: Screening for colorectal malignant neoplasm Providers: Russell Willams DO Medicines: Monitored Anesthesia Care Patient Profile: This is a 53 year old female. Refer to note in patient chart for documentation of history and physical. Last Colonoscopy: more than 10 years ago. Complications: No immediate complications. Procedure: Pre-Anesthesia Assessment: - Prior to the procedure, a History and Physical was performed, and patient medications and allergies were reviewed. The patient is competent. The risks and benefits of the procedure and the sedation options and risks were discussed with the patient. All questions were answered and informed consent was obtained. Patient identification and proposed procedure were verified in the pre-procedure area. Mental Status Examination: alert and oriented. Airway Examination: normal oropharyngeal airway and neck mobility. Respiratory Examination: clear to auscultation. CV Examination: normal. Prophylactic Antibiotics: The patient does not require prophylactic antibiotics. Prior Anticoagulants: The patient has taken no anticoagulant or antiplatelet agents. ASA Grade Assessment: II - A patient with mild systemic disease. After reviewing the risks and benefits, the patient was deemed in satisfactory condition to undergo the procedure. The anesthesia plan was to use moderate sedation / analgesia (conscious sedation). Immediately prior to administration of medications, the patient was re-assessed for adequacy to receive sedatives. The heart rate, respiratory rate, oxygen saturations, blood pressure, adequacy of pulmonary ventilation, and response to care were monitored throughout the procedure. The physical status of the patient was re-assessed after the procedure. After I obtained informed consent, the scope was passed under direct vision. Throughout the procedure, the patient's blood pressure, pulse, and oxygen saturations were monitored continuously. The colonoscope was introduced through the anus and advanced to the terminal ileum. The colonoscopy was performed without difficulty. The patient tolerated the procedure well. Scope In: 6:38:45 AM Scope Withdrawal Time 0 hours 8 minutes 41 seconds Scope Out: 6:54:05 AM Total Procedure Duration Time 0 hours 15 minutes 20 seconds Findings: Hemorrhoids were found on perianal exam. Multiple small and large-mouthed diverticula were found in the recto-sigmoid colon and sigmoid colon. The exam was otherwise without abnormality on direct and retroflexion views. Impression: - Hemorrhoids found on perianal exam. - Diverticulosis in the recto-sigmoid colon and in the sigmoid colon. - The examination was otherwise normal on direct and retroflexion views. - No specimens collected. Recommendation: - Discharge patient to home. - Resume previous diet. - Continue present medications. - Repeat colonoscopy in 10 years for screening purposes. Procedure Code(s): --- Professional --- G0121, Colorectal cancer screening; colonoscopy on individual not meeting criteria for high risk CPT copyright 2021 [employer]. All rights reserved. The codes documented in this report are preliminary and upon gasket notcher review may be revised to meet current compliance requirements. Russell Willams DO 04/03/2023 7:00:55 AM This report has been signed electronically. Number of Addenda: 0 Note Initiated On: 04/03/2023 6:19 AM
--- NOTE | 2023-04-03 07:02 | OP.CCLET_ITS ---
04/03/2023 Nancy Escobar Re : Colonoscopy procedure for Neeta Galvez Shawn This procedure was performed on Monday, April 03, 2023. My impressions and recommendations are as follows: Impressions : - Hemorrhoids found on perianal exam. - Diverticulosis in the recto-sigmoid colon and in the sigmoid colon. - The examination was otherwise normal on direct and retroflexion views. - No specimens collected. Recommendations : - Discharge patient to home. - Resume previous diet. - Continue present medications. - Repeat colonoscopy in 10 years for screening purposes. My findings are described in the full procedure note, which is enclosed. If I can be of further assistance, please feel free to contact me at . Sincerely, Russell Willams, 04/03/2023 7:00:55 AM This report has been signed electronically.
[2023-04-03 07:05] VITALS: BP 102/69; BP 127/78; PULSE 76; RESP 16; O2SAT 96
[2023-04-03 07:10] VITALS: BP 107/68; BP 127/78; PULSE 74; RESP 16; O2SAT 97
[2023-04-03 07:12] VITALS: BP 103/75; BP 127/78; PULSE 75; RESP 16; TEMP 37.3; O2SAT 94
[2023-04-03 07:18] VITALS: BP 127/78
== END 2023-04-03 07:38 | disposition home or self-care (01) ==
LOC: EN 05:27 → AC 05:28
PROVIDERS: PCP Nurse Practitioner Family; Referring Provider Nurse Practitioner Family; Visit Provider Internal Medicine Gastroenterology
PROC: 0DJD8ZZ Inspection of Lower Intestinal Tract, Via Natural or Artificial Opening Endoscopic (ICD-10-PCS; CPT 45378; principal; 2023-04-03 06:25)
DX: Z12.11 Encounter for screening for malignant neoplasm of colon (principal); K57.30 Diverticulosis of large intestine without perforation or abscess without bleeding; Z87.891 Personal history of nicotine dependence; K64.4 Residual hemorrhoidal skin tags; K59.09 Other constipation; J45.909 Unspecified asthma, uncomplicated; K21.00 Gastro-esophageal reflux disease with esophagitis, without bleeding; Z90.49 Acquired absence of other specified parts of digestive tract; Z87.19 Personal history of other diseases of the digestive system
CPT/HCPCS: 45378; J7120; J2405

== ENCOUNTER → 2023-04-11 | Outpatient (CLI) | payer OTHER, SELFPAY ==
--- NOTE | 2023-04-11 09:52 | CT_ITS ---
INDICATION: R HIP PAIN EXAMINATION: CT PELVIS BONE - CT Pelvis W/O Contrast Injection TECHNIQUE: Routine noncontrast bone CT protocol was performed of the pelvis. 2-D reformats were performed by the technologist. A radiation dose optimization technique was used for this scan. IV Contrast dosage and agent: None. COMPARISON: None. FINDINGS: SOFT TISSUES: No soft tissue swelling or gas. No radiopaque foreign body. BONES/JOINTS: No acute fracture or subluxation. Normal alignment. Moderate degenerative changes of the right hip. No sclerotic or destructive changes. CT/Pelvis without IV Contrast IMPRESSION: No evidence of pelvic fracture. Moderate degenerative osteoarthrosis of the right hip. Electronically Signed: Rob Mercado MD at 16:24 [facility] ,
== END | disposition home or self-care (01) ==
LOC: CT 09:48
PROVIDERS: PCP Nurse Practitioner Family; Referring Provider Orthopaedic Surgery; Visit Provider Orthopaedic Surgery
DX: M25.551 Pain in right hip (principal); M16.11 Unilateral primary osteoarthritis, right hip
CPT/HCPCS: 72192

== ENCOUNTER → 2023-08-14 | Outpatient (CLI) | payer OTHER, SELFPAY ==
[2023-08-14 10:40] LABS: Hematocrit 47.9 % (37-47); Hemoglobin 15.2 g/dL (12.0-15.0); Mean Corp Hgb Conc 31.7 g/dL (32-36); Mean Corpuscular Hgb 26.5 pg (27.0-32.0); Mean Corpuscular Volume 83.4 fL (81-99); Mean Platelet Vol. 8.6 fl (6.2-12.0); Platelet Count 254 K/mm3 (150-450); RBC Distribution Width CV 13.7 % (11.6-14.6); RBC Distribution Width SD 41.2 fl (35.1-43.9); Red Blood Count 5.74 M/mm3 (4.2-5.4); White Blood Count 6.3 K/mm3 (4.4-11.0)
[2023-08-14 11:16] LABS: ALB/GLOB Ratio 1.1 RATIO (0.9-2.4); AST(SGOT) 29 U/L (15-37); Alanine Aminotransfer ALT/SGPT 62 U/L (13-56); Alkaline Phosphatase 70 U/L (45-117); Anion Gap 5 (5-15); BUN 19 mg/dL (7-18); BUN/Creat Ratio 26.5 RATIO (10-20); Calcium,Total 9.6 mg/dL (8.5-10.1); Chloride 106 mmol/L (98-107); Creatinine, Serum 0.72 mg/dL (0.55-1.02); EST Glomerular Filtration Rate 90 mL/min (>60); Est Glom Filt Rate - Afr Amer 108 mL/min (>60); Globulin 3.6 g/dL (2.2-4.2); Glucose 102 mg/dL (74-106); Potassium 4.4 mmol/L (3.5-5.1); Protein, Total 7.6 g/dL (6.4-8.2); Sodium Level 141 mmol/L (136-145); Thyroid Stim Hormone (TSH) 1.34 uIU/mL (0.358-3.74)
[2023-08-14 11:49] LABS: Hemoglobin A1c 5.8 % (3.8-5.6)
== END | disposition home or self-care (01) ==
LOC: MTLAB 09:45
PROVIDERS: PCP Nurse Practitioner Family; Referring Provider Psychiatry & Neurology Neurology; Visit Provider Psychiatry & Neurology Neurology
DX: G25.0 Essential tremor (principal); R73.9 Hyperglycemia, unspecified
CPT/HCPCS: 36415; 80053; 82140; 83036; 84443; 85027

== ENCOUNTER → 2023-09-04 | Outpatient (CLI) | payer OTHER, SELFPAY ==
--- NOTE | 2023-09-04 07:56 | EKG12_ITS ---
Test Reason : PRE-OP Blood Pressure : / mmHG Vent. Rate : 081 BPM Atrial Rate : 081 BPM P-R Int : 118 ms QRS Dur : 084 ms QT Int : 382 ms P-R-T Axes : 018 014 021 degrees QTc Int : 443 ms Normal sinus rhythm Normal ECG Confirmed by KALANI BUSH, KAYLEE ([id number]), editor publications KENNEDY DIXON ([id number]) on 09/04/2023 1:25:54 PM Referred By: Thai Duarte Confirmed By:KAYLEE URIARTE MD
[2023-09-04 08:42] LABS: Absolute Lymphocyte Count 1.49 X10^3/uL (0.83-4.51); Absolute Neutrophil Count 3.9 X10^3/uL (2.0-7.7); Basophil# 0.04 X10^3/uL; Basophil% 0.6 % (0-1); Eosinophil# 0.02 X10^3/uL; Eosinophils% 0.3 % (0-5); Hematocrit 47.9 % (37-47); Hemoglobin 15.5 g/dL (12.0-15.0); Lymphocyte # 1.49 X10^3/ul (0.83-4.51); Lymphocyte % 23.5 % (19-41); Mean Corp Hgb Conc 32.4 g/dL (32-36); Mean Corpuscular Volume 83.3 fL (81-99); Mean Platelet Vol. 8.3 fl (6.2-12.0); Monocyte# 0.86 X10^3/uL; Monocyte% 13.5 % (0-10); NRBC Flagged by Analyzer 0 % (0-5); Neutrophil # 3.92 X10^3/uL (2.7-7.7); Neutrophil % 61.8 % (47-70); Platelet Count 215 K/mm3 (150-450); RBC Distribution Width CV 13.3 % (11.6-14.6); RBC Distribution Width SD 40.4 fl (35.1-43.9); Red Blood Count 5.75 M/mm3 (4.2-5.4); White Blood Count 6.4 K/mm3 (4.4-11.0)
[2023-09-04 09:14] LABS: Albumin, Serum 3.8 g/dL (3.2-5.0); Anion Gap 3 (5-15); BUN 17 mg/dL (7-18); BUN/Creat Ratio 19.4 RATIO (10-20); Calcium,Total 9.1 mg/dL (8.5-10.1); Chloride 107 mmol/L (98-107); Creatinine, Serum 0.88 mg/dL (0.55-1.02); EST Glomerular Filtration Rate 71 mL/min (>60); Est Glom Filt Rate - Afr Amer 86 mL/min (>60); Glucose 104 mg/dL (74-106); Potassium 4.5 mmol/L (3.5-5.1); Sodium Level 139 mmol/L (136-145)
== END | disposition home or self-care (01) ==
LOC: PSN 07:49
PROVIDERS: PCP Nurse Practitioner Family; Referring Provider Specialist; Visit Provider Specialist
DX: M06.00 Rheumatoid arthritis without rheumatoid factor, unspecified site (principal); Z79.899 Other long term (current) drug therapy
CPT/HCPCS: 36415; 80048; 82040; 85025; 93005

== ENCOUNTER → 2023-09-16 | Outpatient (CLI) | payer OTHER, SELFPAY ==
--- NOTE | 2023-09-16 12:45 | RAD_ITS ---
STUDY: X-RAY CHEST REASON FOR EXAM: Female, 53 years old. COUGH TECHNIQUE: PA and lateral views of the chest. COMPARISON: None. FINDINGS: The lungs are clear and expanded. There is no demonstrated pleural abnormality. Normal size heart. Normal mediastinum and jh. Normal visualized pulmonary arteries. Normal visualized aortic arch and descending thoracic aorta. Normal visualized thoracic spine. Normal visualized ribs, clavicles, and shoulders. There is no demonstrated abnormality of the visualized soft tissue structures of the upper abdomen. RAD/Chest PA and Lateral IMPRESSION: Normal x-ray examination of the chest. Electronically Signed: Chandan Licea MD at 23:22 EDT ,
== END | disposition home or self-care (01) ==
LOC: RAD 12:29
PROVIDERS: PCP Nurse Practitioner Family; Visit Provider Nurse Practitioner Family
DX: R05.3 Chronic cough (principal)
CPT/HCPCS: 71046

== ENCOUNTER → 2024-01-03 | Outpatient (CLI) | payer SELFPAY ==
--- NOTE | 2024-01-03 11:55 | BI_ITS ---
MAMMOGRAPHY - BILATERAL SCREENING REASON FOR EXAM: Female, 53 years old. Routine annual screening examination. PERTINENT HISTORY: Grandmother with breast cancer. Aunts with breast cancer. TECHNIQUE: Digital bilateral breast kenna (3D mammographic acquisition) in the CC and MLO projections. 2-D mediolateral oblique (MLO) and craniocaudad (CC) views of both breasts were obtained. CAD: Full Field Digital Mammography with Computer Added Detection was performed. COMPARISON: Comparison is made with prior study December 30, 2022 and November 16, 2020. FINDINGS: Breast Composition: The breasts are heterogeneously dense, which may obscure small masses. There are no dominant masses or suspicious calcifications. Stable small benign-appearing bilateral axillary lymph nodes. No other significant abnormalities are identified. There has been no significant change since the prior study. BI/SCRN MAMM (CAD)W/KENNA BILAT IMPRESSION: Stable bilateral screening mammogram. Yearly follow-up mammogram recommended. (A) ASSESSMENT CATEGORY: BIRADS Category 2: Benign. A letter regarding these results will be sent to the patient by the facility within 30 days. Approximately 10% of breast cancers are not detected by mammography. A normal mammogram should not delay biopsy of a clinically suspicious abnormality. [id number] Electronically Signed: Shubham Madrigal MD at 14:56 EDT ,
== END | disposition home or self-care (01) ==
LOC: OPBI 11:51
PROVIDERS: PCP Nurse Practitioner Family; Referring Provider Nurse Practitioner Family; Visit Provider Nurse Practitioner Family
DX: Z12.31 Encounter for screening mammogram for malignant neoplasm of breast (principal)
CPT/HCPCS: 77063; 77067